=== PATIENT | female | born 1955 ===

== ENCOUNTER 2025-07-14 10:59 | Emergency (ER) | payer OTHER ==
[~2025-07-14] VITALS: Ht 170.2 cm; Wt 111.1 kg
[2025-07-14 11:29] VITALS: BP 122/80; O2SAT 99
[2025-07-14] MEDS ORDERED: PEPCID AC20 MG (11:36)
[2025-07-14] MEDS ORDERED: ANUSOL-HC30 G2 (11:36)
[2025-07-14] MEDS ORDERED: ALL DAY ALLERGY10 M3 (11:36)
[2025-07-14] MEDS ORDERED: XARELTO20 MG (11:37)
[2025-07-14] MEDS ORDERED: ROSUVASTATIN CA20 MG (11:37)
[2025-07-14] MEDS ORDERED: OMEPRAZOLE-BIC1 EAC1 (11:37)
[2025-07-14] MEDS ORDERED: MAGNESIUM400 MG (11:37)
[2025-07-14] MEDS ORDERED: GENTAMICIN SULFATE 0.15 MG/DR DROPS 5ML OP ONE (12:00)
== END 2025-07-14 12:13 | disposition home or self-care (01) ==
LOC: ER 11:00
DX: H10.89 Other conjunctivitis (principal); Z88.0 Allergy status to penicillin